=== PATIENT | female | born 1985 | race Two or more races ===

== ENCOUNTER 2024-06-29 08:09 | Outpatient (CLI) | payer OTHER ==
[~2024-06-29 08:09] MED LIST: VITAMIN C1000 M2 PO
== END 2024-06-29 08:10 | disposition home or self-care (01) ==
LOC: PRENATAL 08:09
PROVIDERS: ATTEND Obstetrics & Gynecology Maternal & Fetal Medicine
DX: O44.00 Complete placenta previa NOS or without hemorrhage, unspecified trimester (principal); Z14.8 Genetic carrier of other disease; Z3A.20 20 weeks gestation of pregnancy

== ENCOUNTER 2024-09-28 08:47 | Outpatient (CLI) | payer OTHER | END 2024-09-28 08:48 | disposition home or self-care (01) | LOC: PRENATAL 08:47 | PROVIDERS: ATTEND Obstetrics & Gynecology Maternal & Fetal Medicine | DX: O26.849 Uterine size-date discrepancy, unspecified trimester (principal); O36.8199 Decreased fetal movements, unspecified trimester, other fetus; Z14.8 Genetic carrier of other disease; Z3A.33 33 weeks gestation of pregnancy ==